=== PATIENT | female | born 1990 | race Caucasian/White ===

== ENCOUNTER 2020-05-05 21:37 | Emergency (ER) | payer BC ==
[~2020-05-05] VITALS: Ht 162.6 cm; Wt 73.0 kg
[2020-05-05] MEDS ORDERED: PREN27TA3 PO (21:43)
[2020-05-05] MEDS ORDERED: MAGN250T7 PO (21:43)
[2020-05-05] MEDS ORDERED: PYRI100L PO (21:43)
[2020-05-05] MEDS ORDERED: DIPH50CA PO (21:46)
[2020-05-05] MEDS ORDERED: UNIS25TA3 PO (23:30)
[2020-05-05 23:39] VITALS: BP 112/69
== END 2020-05-05 23:40 | disposition home or self-care (01) ==
LOC: M ED 21:37
DX: O99.711 Diseases of the skin and subcutaneous tissue complicating pregnancy, first trimester (principal); L50.0 Allergic urticaria; Z3A.09 9 weeks gestation of pregnancy

== ENCOUNTER → 2021-07-27 | Outpatient (REF) ==
[~2021-07-27] MED LIST: DIPH50CA PO; MAGN250T7 PO; PREN27TA3 PO; PYRI100L PO; UNIS25TA3 PO
== END ==
LOC: M LABSMTC 09:49
PROVIDERS: ATTEND Family Medicine
DX: Z11.52 Encounter for screening for COVID-19 (principal)

== ENCOUNTER → 2023-02-19 | Outpatient (REF) ==
[2023-02-19 13:43] LABS: RSV AMPLIFICATION POSITIVE (NEGATIVE)
== END ==
LOC: M EMP 07:50
PROVIDERS: ATTEND Family Medicine
DX: Z20.828 Contact with and (suspected) exposure to other viral communicable diseases (principal)